=== PATIENT | female | born 1990 | race Caucasian/White ===

== ENCOUNTER 2017-05-24 19:28 | Emergency (ER) | payer BC ==
[2017-05-24 19:35] VITALS: RESP 16; TEMP 98.2; O2SAT 96
--- NOTE | 2017-05-24 20:15 | EDPHY ---
H & P Time Seen by Provider: 05/24/17 20:04 HPI/ROS: CHIEF COMPLAINT: Vaginal swelling and itching HISTORY OF PRESENT ILLNESS: The patient has symptoms for 1 hour. Noticed blood in her underwear and then itching swelling and pain in her vaginal area more on the left side, accompanied by some dysuria when she gave a sample in the ED. No fever or chills. No abdominal pain or nausea or vomiting. No diarrhea. REVIEW OF SYSTEMS: Last menstrual. 1 month ago but she adjusted her control tablets recently because she was traveling. PAST MEDICAL HISTORY: Negative for history of PID, gastrointestinal surgery as an infant. General Appearance: Alert and conversant, cooperative. Pelvic exam performed with the patient's nurse shows edema and swelling of the left labia minora. No herpes lesions or other ulcers or vesicles seen. Slight discharge which is whitish but no other internal abnormalities on speculum exam. No cervical motion tenderness. Emergency Department course/MDM: Patient presents with rapid onset of symptoms and unilateral labial swelling which is more likely to be acute local allergic reaction then an STD or other gynecologic infection. She is encouraged to use cold compresses and antihistamines and call tomorrow for results of STD testing, I do not think empirical infectious treatment is indicated given her presentation. She does not have redness or warmth or lymphangitis to suggest a localized labial infection. There is no fluctuance to suggest likely abscess. Not presentation clinically of Bartholin cyst. 1522 on 05/25 STD panel reviewed is negative. Smoking Status: Former smoker Constitutional: Initial Vital Signs Temperature (C) 36.8 C 05/24/17 19:30 Heart Rate 72 05/24/17 19:30 Respiratory Rate 16 05/24/17 19:30 Blood Pressure 131/91 H 05/24/17 19:30 O2 Sat (%) 96 05/24/17 19:30 O2 Delivery Mode Room Air Allergies/Adverse Reactions: No Known Allergies Allergy (Unverified 05/24/17 19:35) Home Medications: Medication Instructions Recorded Loestrin 21 1-20 Tablet 05/24/17 Prozac 10 MG (*) 05/24/17 MDM/Departure - Depart Disposition: Home, Routine, Self-Care Clinical Impression: Labial swelling Condition: Good Instructions: General Allergic Reaction (ED) Additional Instructions: Probable local allergic reaction. The antihistamine orally as you are doing for the next 3 days. Local cold or ice pack to the area 20 minutes at a time as discussed for the next 3 days. Call tomorrow for pelvic infection test results [phone]. Referrals: MATHEW REAL [Other] - As per Instructions
[2017-05-24 21:28] VITALS: BP 128/75; PULSE 88
[2017-05-25 12:11] LABS: CHLAMYDIA AMPLIFICATION GENPRB NEGATIVE (NEGATIVE)
== END 2017-05-24 21:25 | disposition home or self-care (01) ==
DX: N89.8 Other specified noninflammatory disorders of vagina (principal); Z87.891 Personal history of nicotine dependence